=== PATIENT | female | born 1985 | race Caucasian/White ===

== ENCOUNTER 2017-02-21 04:23 | Emergency (ER) | payer BC, OTHER ==
[~2017-02-21] VITALS: Ht 162.6 cm; Wt 57.9 kg
[~2017-02-21 04:23] MED LIST: IBUP-1222 PO; OXYC-302 PO
[2017-02-21] MEDS ORDERED: SODIUM CHLORIDE 0.9% 1,000 ML IV ONE (05:19)
[2017-02-21 06:13] LABS: WHITE BLOOD COUNT 11.3 x10^3/uL (3.4-10)
[2017-02-21 06:25] LABS: ASPARTATE AMINO TRANSFERASE 10 U/L (15-37); BLOOD UREA NITROGEN 7 mg/dL (7-18)
[2017-02-21 07:24] VITALS: BP 114/68
== END 2017-02-21 07:40 | disposition home or self-care (01) ==
LOC: ED 05:10
DX: O03.9 Complete or unspecified spontaneous abortion without complication (principal); O99.281 Endocrine, nutritional and metabolic diseases complicating pregnancy, first trimester; E03.9 Hypothyroidism, unspecified; Z3A.10 10 weeks gestation of pregnancy
CPT/HCPCS: 36415; 76801; 80053; 84702; 85025; 86901; 99285